=== PATIENT | female | born 1965 | race Caucasian/White ===

== ENCOUNTER 2020-04-20 15:01 | Emergency (ER) | payer MEDICARE, OTHER, SELFPAY ==
--- NOTE | ~2020-04-20 | XR_ITS ---
EXAMINATION: XR wrist RT min 3V EXAM DATE: 04/20/2020 15:39 INDICATION: Initial encounter following fall injury, with pain of the right wrist. Patient has known wrist fractures from 3 months ago. Reinjury. TECHNIQUE: Right wrist frontal, frontal with ulnar deviation, oblique and lateral projections obtain ed and reviewed. There is no prior study for comparison. Correlation was made with right forearm fro m 03/03/2019. FINDINGS: Subacute appearing right radial and ulnar distal metaphyseal fractures into joints with mil d posterior angulation to both. Dense sclerosis, indistinct fracture margin indicating routine healin g. No evidence of superimposed acute refracture, but prior study demonstrating position and alignment of this is not available at this time for direct comparison. Surgical clips overlying the distal asp ect of the radius again noted. IMPRESSION: Subacute appearing right radial and ulnar distal metaphyseal fractures with mild posterio r position. Reviewed, dictated and finalized at location A. IMPRESSION: Subacute appearing right radial and ulnar distal metaphyseal fractu res with mild posterior position.
[2020-04-20 15:18] VITALS: BP 119/70; PULSE 115; RESP 16; TEMP 37.2; O2SAT 99
--- NOTE | 2020-04-20 15:37 | ED.UPPEXIN ---
HPI - Extremity Injury (Upper) General Chief Complaint: Extremity Injury, Upper Stated Complaint: injury right wrist Time Seen by Provider: 04/20/20 15:31 Source: patient and RN notes reviewed Mode of arrival: ambulatory Limitations: no limitations History of Present Illness HPI narrative: Patient presents today with an injury to her right wrist. States she tripped going up some stairs yesterday and fell onto an outstretched hand. 2 to 3 months ago patient had a fracture in the same wrist, and got her cast off approximately 1 month ago. She has been wearing a splint, but did not have it on at the time of this current injury. 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 She has chronic numbness to the third, fourth, and fifth fingers. She currently rates her pain 6/10 and has been taking Aleve with some relief. Pain increases with range of motion and palpation. She previously saw an ortho in [place], but now lives in [place]. Related Data Home Medications Medication Instructions Recorded Confirmed fexofenadine mg 04/20/20 gabapentin 04/20/20 levothyroxine 04/20/20 lorazepam 04/20/20 metronidazole 04/20/20 nortriptyline 04/20/20 omeprazole 04/20/20 sertraline mg 04/20/20 Allergies Allergy/AdvReac Type Severity Reaction Status Date / Time Penicillins Allergy Mild Verified 03/03/19 13:17 Review of Systems Review of Systems: Narrative: CONSTITUTIONAL: Denies body aches, fever, chills, or sweats. EYES: Denies visual changes, redness, or discharge. ENT: Denies rhinorrhea, congestion, sore throat, or otalgia. CARDIOVASCULAR: Denies chest pain, palpitations, or edema. RESPIRATORY: Denies cough or dyspnea. GASTROINTESTINAL: Denies abdominal pain, nausea, vomiting, or diarrhea. GENITOURINARY: Denies dysuria or hematuria. SKIN: Denies rash, itching, or wounds. MUSCULOSKELETAL: Denies back pain, or myalgia.+ Right wrist injury NEUROLOGIC: Denies headache, numbness, tingling, or weakness. PSYCH: Denies depression or anxiety. PMFSH Social History Social History Smoking status: Never smoker Comments At time of signature, I have reviewed and agree with nursing past medical, surgical, social and family history unless otherwise noted. Please see nursing chart for further information. There is no relevant family history pertinent to the presenting complaint Exam Narrative: Exam Narrative: GENERAL: Well-appearing, well-nourished, and in no acute distress. HEAD: Normocephalic, atraumatic. EYES: EOMI. No redness or drainage. Conjunctivae normal. ENT: Mucous membranes pink and moist. NECK: Normal AROM. CHEST: No respiratory distress. EXTREMITIES: Right wrist: Tenderness to the distal radius and ulna with mild edema. Distal sensation is intact in fingers 1 and 2. No sensation in fingers 3 through 5, which is baseline for patient. Pain increases significantly with any palpation and any range of motion of the wrist. SKIN: Warm, dry, no rash. Capillary refill normal. Normal skin turgor. NEURO: No focal deficits. Alert and oriented x3. Gait steady. PSYCH: Normal affect. No signs of depression or anxiety. Course Vital Signs Vital signs: Vital Signs Temperature 99.0 F 04/20/20 15:18 Pulse Rate 115 H 04/20/20 15:18 Respiratory Rate 16 04/20/20 15:18 Blood Pressure 119/70 04/20/20 15:18 Pulse Oximetry 99 04/20/20 15:18 Temperature 99.0 F 04/20/20 15:18 Pulse Rate 115 H 04/20/20 15:18 Respiratory Rate 16 04/20/20 15:18 Blood Pressure 119/70 04/20/20 15:18 Pulse Oximetry 99 04/20/20 15:18 Reviewed MDM - Extremity Injury (Upper) Differential Diagnosis Differential diagnosis: Likely sprain and strain of wrist and fracture of wrist Imaging Data Radiologist's impression: FINDINGS: Subacute appearing right radial and ulnar distal metaphyseal fractures into joints with mild posterior angulation to both. Dense sclerosis, i
== END 2020-04-20 16:15 | disposition home or self-care (01) ==
PROVIDERS: Emergency Provider Nurse Practitioner; PCP Family Medicine Adolescent Medicine
DX: S63.501A Unspecified sprain of right wrist, initial encounter (principal); W10.9XXA Fall (on) (from) unspecified stairs and steps, initial encounter
CPT/HCPCS: 73110; 99213; G0463

== ENCOUNTER 2020-12-07 11:53 | Emergency (ER) | payer MEDICARE, OTHER, SELFPAY ==
--- NOTE | ~2020-12-07 | XR_ITS ---
EXAMINATION: XR foot LT min 3V DATE: 12/07/2020 12:21 INDICATION: Injury to the left metatarsals with lateral left foot pain TECHNIQUE: Dorsoplantar, two oblique and lateral views of the left foot were obtained. COMPARISON: None. FINDINGS: Subtle linear lucency extending across the cortices at the distal diaphysis of the fourth metatarsal with very subtle minimal amount of periosteal reaction consistent with a nondisplaced likely subacute fracture, potentially stress fracture. Callus formation about a likely chronic fracture of the neck of the left fifth proximal phalanx which is healed there is healing with near-anatomic alignment. Ali gnment is otherwise normal. No other fractures identified. Mild polyarticular osteoarthritis at the i nterphalangeal and first metatarsophalangeal joints. Small plantar calcaneal spur. Additional small a mount of enthesopathic ossification at the distal Achilles tendon. Soft tissue swelling over the dors um of the forefoot. IMPRESSION: 1. Nondisplaced likely subacute stress fracture at the distal diaphysis of the left fourth metatarsal with minimal periosteal reaction. 2. Chronic nondisplaced fracture at the neck of the fifth proximal phalanx. Reviewed, dictated and finalized at location A. 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
[2020-12-07 12:10] VITALS: BP 119/78; PULSE 91; RESP 16; TEMP 36.3; O2SAT 100
--- NOTE | 2020-12-07 12:22 | ED.GENADULT ---
HPI - General Adult General Chief complaint: Extremity Injury, Lower Stated complaint: Left foot Pain Time Seen by Provider: 12/07/20 12:20 Source: patient and RN notes reviewed Mode of arrival: ambulatory Limitations: no limitations History of Present Illness HPI narrative: 54-year-old female presents today with complaints of left foot pain, swelling, and discoloration for the past 3 days. Farzana reports she slipped in mud and snow causing injury to LT foot while visiting mother in [place], heard a popping sound prior to pain and swelling. Ice and routine medications (Gabapentin and Amitriptyline) without relief. Hurts to bear weight. No radiation of pain. No numbness, tingling, or loss of mobility. Exacerbating factor applying weight. Denies inability to bear weight. Denies suspect foreign body. Denies fever. The patient reports she have not been diagnosed with COVID-19. The patient reports she is not waiting for the results of a COVID-19 lab test. The patient reports she do not have chills, weakness, or fatigue. The patient reports she do not have a new or worsening cough or shortness of breath. Denies chest pain. The patient reports she do not have any rhinorrhea, congestion, sore throat, loss of taste, nausea, vomiting, abdominal pain, and diarrhea. Tolerating po intake well. Recent traveled to [place], returned on 12/06/2020. Denies concerns for COVID-19 or exposures been home with limited outdoor exposure except for essential household needs and return home. At this time, patient is not suspected of having COVID-19. Some parts of this dictation were generated by voice recognition software and may contain typographical and/or grammatical inaccuracies. Related Data Home Medications Medication Instructions Recorded Confirmed gabapentin 04/20/20 nortriptyline 04/20/20 omeprazole 04/20/20 alprazolam 12/07/20 Allergies Allergy/AdvReac Type Severity Reaction Status Date / Time Penicillins Allergy Mild Verified 03/03/19 13:17 Review of Systems Review of Systems: Narrative: CONSTITUTIONAL: Denies fever, chills, sweats. EYES: Denies visual changes, redness, discharge. ENT: Denies rhinorrhea, congestion, sore throat, otalgia. CARDIOVASCULAR: Denies chest pain, palpitations, edema. RESPIRATORY: Denies dyspnea, wheezing, cough. GASTROINTESTINAL: Denies abdominal pain, nausea, vomiting, diarrhea. SKIN: Denies rash or itching. MUSCULOSKELETAL: Denies acute back pain or myalgia. Complains of pain, discoloration, and swelling to left foot. NEUROLOGIC: Denies numbness or focal weakness. PSYCHIATRIC: Denies anxiety or depression. All other systems reviewed are negative, except as documented in HPI and below. [facility] Past Medical History Medical History (Updated 12/08/20 @ 00:00 by Betzaida Martinez) Arm fracture, right nerve damage Current smoker social, reports every 2-3 weeks History of gastroesophageal reflux (GERD) Wrist fracture, right Surgical History Surgical History (Updated 12/07/20 @ 13:32 by BI Diaz) History of hysterectomy 1992 History of surgery on upper extremity RT arm Family History Family History (Updated 12/07/20 @ 13:33 by BI Diaz) Father Acute myocardial infarction Mother Alive and well Social History Social History (Updated 12/07/20 @ 13:34 by BI Diaz) Smoking status: Current some day smoker Tobacco type: cigarettes Second hand tobacco smoke exposure: Yes Alcohol intake: current Substance use: never Other substance usage details: reports she has a marijuana card but does not use it Living arrangements: with family Additional living arrangements comments: spouse Occupation/Education: retired Gender identity (if verbalized by the patient): Female Sexual Orientation (if Verbalized by the Patient): Straight or Heterosexual Comments At time of signature, agree with nurse bella
[2020-12-07] MEDS: KETOROLAC (*BKC) 60 MG/2 ML VIAL IM (12:42)
== END 2020-12-07 13:02 | disposition home or self-care (01) ==
PROVIDERS: Emergency Provider Nurse Practitioner Family; PCP Family Medicine Adolescent Medicine
DX: S92.902A Unspecified fracture of left foot, initial encounter for closed fracture (principal); W18.40XA Slipping, tripping and stumbling without falling, unspecified, initial encounter; Z72.0 Tobacco use; K21.9 Gastro-esophageal reflux disease without esophagitis
CPT/HCPCS: 73630; 96372; 99214; G0463; J1885

== ENCOUNTER 2021-01-23 11:48 | Emergency (ER) | payer MEDICARE, OTHER, SELFPAY ==
--- NOTE | ~2021-01-23 | XR_ITS ---
EXAMINATION: XR wrist RT min 3V EXAM DATE: 01/23/2021 12:11 INDICATION: Fall, rt wrist pain medial side . Initial encounter. TECHNIQUE: Right wrist frontal, frontal with ulnar deviation, oblique and lateral projections obtain ed and reviewed. Comparison is made to prior examination from 04/20/2020. FINDINGS: Right wrist scapholunate joint space is maintained. Previously seen radius and ulnar fractu res have healed. There are no acute fractures or dislocations identified. There is no subcutaneous g as. The soft tissue is unremarkable. Small surgical clips over the distal aspect of the forearm. IMPRESSION: 1. Right wrist exam without acute osseous findings. 2. Healed fractures. Reviewed, dictated and finalized at location A. IMEDIA AUTHOR
--- NOTE | 2021-01-23 11:58 | ED.UPPEXIN ---
HPI - Extremity Injury (Upper) General Chief Complaint: Extremity Injury, Upper Stated Complaint: Right Wrist Pain Time Seen by Provider: 01/23/21 12:04 Source: patient and RN notes reviewed History of Present Illness HPI narrative: Patient is a 55-year-old female who presents the urgent care with complaints of right wrist pain and swelling due to fall. Patient states that she fell approximately 1 hour prior to arrival going up concrete steps. Patient denies of any other injuries or hitting her head. Patient has a history of severe right arm/elbow fracture with hardware. Patient states the hardware was just recently removed. Patient also fractured her right wrist/radius and ulna last year. 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 Patient denies any use of [id number] medication or ice prior to arrival for the new injury. No other acute complaints. No acute distress noted. Patient aware of the plan of care. Some parts of this dictation were generated by voice recognition software and may contain typographical and/or grammatical inaccuracies. Related Data Home Medications Medication Instructions Recorded Confirmed gabapentin 04/20/20 nortriptyline 04/20/20 alprazolam 12/07/20 diclofenac sodium PO 01/23/21 fexofenadine mg 01/23/21 levothyroxine 01/23/21 Allergies Allergy/AdvReac Type Severity Reaction Status Date / Time Penicillins Allergy Mild Verified 03/03/19 13:17 Review of Systems Review of Systems: Narrative: CONSTITUTIONAL: Denies fever, chills, or sweats. EYES: Denies visual changes, redness, or discharge. ENT: Denies rhinorrhea, congestion, sore throat, or otalgia. CARDIOVASCULAR: Denies chest pain, palpitations, or edema. RESPIRATORY: Denies cough or dyspnea. GASTROINTESTINAL: Denies abdominal pain, nausea, vomiting, or diarrhea. GENITOURINARY: Denies dysuria or hematuria. SKIN: Denies rash or itching. MUSCULOSKELETAL: Reports of right wrist pain and swelling NEUROLOGIC: Denies headache, numbness, or weakness. All other systems reviewed are negative, except as documented in HPI. [facility] Past Medical History Medical History (Updated 01/23/21 @ 12:32 by BI Kiser) Arm fracture, right nerve damage Current smoker social, reports every 2-3 weeks History of gastroesophageal reflux (GERD) Wrist fracture, right Surgical History Surgical History (Updated 12/07/20 @ 13:32 by BI Diaz) History of hysterectomy 1992 History of surgery on upper extremity RT arm Family History Family History (Updated 12/07/20 @ 13:33 by BI Diaz) Father Acute myocardial infarction Mother Alive and well Social History Social History (Updated 12/07/20 @ 13:34 by BI Diaz) Smoking status: Current some day smoker Tobacco type: cigarettes Second hand tobacco smoke exposure: Yes Alcohol intake: current Substance use: never Other substance usage details: reports she has a marijuana card but does not use it Additional living arrangements comments: spouse Gender identity (if verbalized by the patient): Female Comments At the time of my signature, I reviewed and agree with the nursing past medical, surgical, social, and family history. There is no relevant family history pertinent to the patient complaint. Exam Narrative: Exam Narrative: GENERAL: This is a well-nourished, well-developed patient, in no apparent distress. HEAD: normocephalic, atraumatic. EYES: PERRL. Sclera clear/white. Vision is grossly intact. EARS: External ears normal NOSE: External nose normal with no obvious nasal discharge, nares without redness, no rhinorrhea. THROAT: Mucous membranes moist NECK: Neck supple SKIN: warm, intact with no suspicious lesions or rash, good texture and turgor. NEURO: awake, alert, and oriented to person, place and time. There
[2021-01-23 12:03] VITALS: BP 121/86; PULSE 99; RESP 18; TEMP 36.4; O2SAT 99
== END 2021-01-23 12:34 | disposition home or self-care (01) ==
PROVIDERS: Emergency Provider Nurse Practitioner Family; PCP Family Medicine Adolescent Medicine
DX: S63.501A Unspecified sprain of right wrist, initial encounter (principal); S66.911A Strain of unspecified muscle, fascia and tendon at wrist and hand level, right hand, initial encounter; W10.9XXA Fall (on) (from) unspecified stairs and steps, initial encounter; K21.9 Gastro-esophageal reflux disease without esophagitis; Z72.0 Tobacco use
CPT/HCPCS: 73110; 99213; G0463

== ENCOUNTER → 2021-02-04 12:17 | Outpatient (CLI) | payer MEDICARE, OTHER, SELFPAY ==
--- NOTE | ~2021-02-04 | MM_ITS ---
EXAMINATION: MM screening delmis BI w sue HISTORY: Screening TECHNIQUE: Craniocaudal and mediolateral oblique 3-D tomosynthesis images were obtained and synthetic 2-D images were generated. CAD analysis was submitted and interpreted. COMPARISON: Comparison to multiple prior studies sequentially, with oldest reviewed study dated 06/12. BREAST PARENCHYMAL COMPOSITION: There are scattered areas of fibroglandular density. FINDINGS: There is no evidence of suspicious mass, calcification, or architectural distortion to sugg est malignancy in either breast. There has been no suspicious interval change. IMPRESSION: 1. No mammographic evidence of malignancy. 2. Recommend routine screening mammography in one year. BI-RADS Category 1: Negative Reviewed, dictated and finalized at location A.
== END ==
PROVIDERS: PCP Family Medicine Adolescent Medicine; Visit Provider Family Medicine Adolescent Medicine
DX: Z12.31 Encounter for screening mammogram for malignant neoplasm of breast (principal)
CPT/HCPCS: 77063; 77067

== ENCOUNTER 2021-03-22 16:31 | Emergency (ER) | payer MEDICARE, OTHER, SELFPAY ==
--- NOTE | ~2021-03-22 | XR_ITS ---
EXAMINATION: XR wrist RT min 3V DATE: 03/22/2021 16:52 INDICATION: Right wrist pain. Injury. TECHNIQUE: 4 views of right wrist were obtained. COMPARISON: Right wrist radiographs 01/23/2021 FINDINGS: There is an old healed fracture deformity of distal radius. There is 28 degrees dorsal tilt of the distal articular surface. There is an old avulsion fracture of ulnar styloid with nonunion. N o acute fracture. There is mild osteoarthritis of distal radioulnar joint and first carpometacarpal j oint. There are surgical clips in the volar aspect of the forearm. IMPRESSION: 1. Mild polyarticular osteoarthritis. 2. Old healed fracture of distal radius with malunion. Reviewed, dictated and finalized at location A.
[2021-03-22 16:40] VITALS: BP 119/74; PULSE 108; RESP 16; TEMP 36.3; O2SAT 99
--- NOTE | 2021-03-22 16:44 | ED.UPPEXIN ---
HPI - Extremity Injury (Upper) General Chief Complaint: Extremity Injury, Upper Stated Complaint: right hand pain Time Seen by Provider: 03/22/21 17:05 Source: patient and RN notes reviewed Mode of arrival: ambulatory Limitations: no limitations History of Present Illness HPI narrative: 55-year-old female presents with concern for right wrist and hand injury. Reports this afternoon she tripped over her dog falling onto her right hand and wrist. Reports pain at baseline, pain with range of motion. Reports a previous injury to that hand, fracture, nerve damage. Reports she is used ice and elevation. MD complaint: injury to: right and hand Related Data Home Medications Medication Instructions Recorded Confirmed gabapentin 04/20/20 nortriptyline 04/20/20 alprazolam 12/07/20 diclofenac sodium PO 01/23/21 fexofenadine mg 01/23/21 levothyroxine 01/23/21 Allergies Allergy/AdvReac Type Severity Reaction Status Date / Time Penicillins Allergy Mild Verified 03/03/19 13:17 Review of Systems Review of Systems: Narrative: CONSTITUTIONAL: Denies malaise, chills, sweats, or fever. SKIN: Denies lacerations, abrasions MUSCULOSKELETAL: Reports right hand and wrist pain NEUROLOGIC: Denies numbness, weakness All systems reviewed & are unremarkable except as noted in HPI and below PMFSH Past Medical History Medical History (Updated 03/22/21 @ 17:20 by Sarita Aragon NP) Arm fracture, right nerve damage Current smoker social, reports every 2-3 weeks History of gastroesophageal reflux (GERD) Wrist fracture, right Surgical History Surgical History (Updated 12/07/20 @ 13:32 by BI Diaz) History of hysterectomy 1992 History of surgery on upper extremity RT arm Family History Family History (Updated 12/07/20 @ 13:33 by BI Diaz) Father Acute myocardial infarction Mother Alive and well Social History Social History (Updated 12/07/20 @ 13:34 by BI Diaz) Smoking status: Current some day smoker Tobacco type: cigarettes Second hand tobacco smoke exposure: Yes Alcohol intake: current Substance use: never Other substance usage details: reports she has a marijuana card but does not use it Additional living arrangements comments: spouse Gender identity (if verbalized by the patient): Female Comments At time of signature, agree with nursing past medical, surgical, social and family history. There is no relevant family history pertinent to the presenting complaint Exam Narrative: Exam Narrative: GENERAL: Well-appearing, well-nourished, and in no acute distress. HEAD: Normocephalic, atraumatic. EYES: PERRLA, conjunctivae clear NECK: Supple. CHEST: Speaks in full sentences. No respiratory distress. HEART: Regular rate and rhythm. Normal and equal peripheral pulses. EXTREMITIES: Right wrist, hand, digits have limited strength, sensation, range of motion -this is patient's baseline due to previous injury. Mild dorsal edema, edema in digits 4 and 5. No ecchymosis. 3/5 strength with digits 4 and 5 flexion and extension, 5/5 strength with digits 1-3 flexion and extension. Generalized lateral hand and wrist tenderness. No open wounds, no skin tenting, nearby joints and structures intact. Distal pulses palpable and equal bilaterally, skin warm, dry, pink. Capillary refill less than 3 seconds. SKIN: Warm, dry, no rash. NEURO: Alert and oriented x3. PSYCH: Normal mood and affect Course Course Emergency Course: Patient is aware of diagnosis, understands and agrees to treatment plan. Anticipatory guidance given. Patient agrees to follow-up as directed and is aware of reasons to seek care at the emergency department. Portions of this record may have been created with voice recognition software Vital Signs Vital signs: Vital Signs Temperature 97.3 F L 03/22/21 16:40 Pulse Rate 108 H 03/22/21 16:40 Respiratory Rate 16 03/22/21 1
== END 2021-03-22 17:21 | disposition home or self-care (01) ==
PROVIDERS: Emergency Provider Nurse Practitioner; PCP Family Medicine Adolescent Medicine
DX: S63.501A Unspecified sprain of right wrist, initial encounter (principal); S66.911A Strain of unspecified muscle, fascia and tendon at wrist and hand level, right hand, initial encounter; W01.0XXA Fall on same level from slipping, tripping and stumbling without subsequent striking against object, initial encounter; F17.210 Nicotine dependence, cigarettes, uncomplicated; K21.9 Gastro-esophageal reflux disease without esophagitis
CPT/HCPCS: 73110; 99213; G0463

== ENCOUNTER 2021-04-11 11:38 | Outpatient (CLI) | payer MEDICARE, OTHER, SELFPAY ==
--- NOTE | ~2021-04-11 | CT_ITS ---
EXAMINATION: CT abdomen pelvis w con INDICATION: Nausea vomiting and diarrhea TECHNIQUE: Computed tomographic images of the abdomen and pelvis were obtained after the administrati on of 100 cc of Omnipaque 350 intravenous contrast. The dose-length product (DLP) was 775.28 mGy-cm. Automated exposure control and iterative reconstruction technique were employed. COMPARISON: 06/18/2013 FINDINGS: Minimal dependent atelectasis is present in the lung bases. The heart size is normal. The l iver, spleen, pancreas, gallbladder, and adrenal glands are normal. The kidneys are unremarkable. No pathologically enlarged abdominal or pelvic lymph nodes are identified. There is no free intraperiton eal gas or evidence of bowel obstruction. There is widespread submucosal fat deposition in the colon and terminal ileum. The appendix is gas-filled. There is a small umbilical hernia containing fat. The re is mild lumbar spondylosis. IMPRESSION: 1. No CT correlate for the patient's symptoms. 2. Widespread submucosal fat deposition in the colon and terminal ileum which is nonspecific but can be seen in the setting of inflammatory bowel disease. Reviewed, dictated and finalized at location A. IMPRESSION: 1. No CT correlate for the patient's symptoms. 2. Widespread submucosal fat deposition in the colon and terminal ileum which i s nonspecific but can be seen in the setting of inflammatory bowel disease.
[2021-04-11 13:44] LABS: Alanine Aminotransferase 20 U/L (4-35); Albumin Level 4.2 g/dL (3.5-5.1); Alkaline Phosphatase 99 U/L (38-126); Anion Gap 4 mmol/L (8-16); Aspartate Amino Transferase 37 U/L (14-36); Bilirubin,Total 0.3 mg/dL (0.2-1.3); Blood Urea Nitrogen 13 mg/dL (7-17); Calcium 8.8 mg/dL (8.4-10.2); Carbon Dioxide 27 mmol/L (22-30); Chloride 105 mmol/L (98-107); Cholesterol 236 mg/dL (0-200); Estimated Glomerular Filt Rate > 60; Glucose 76 mg/dL (65-105); HDL Direct 48 mg/dL; Potassium 4.4 mmol/L (3.4-5.0); Sodium 136 mmol/L (137-145); Triglycerides 223 mg/dL (<150)
[2021-04-11 13:54] LABS: LDL Cholesterol Direct 132 mg/dL
== END 2021-04-11 11:39 | disposition home or self-care (01) ==
PROVIDERS: PCP Family Medicine Adolescent Medicine; Visit Provider Physician Assistant
DX: E03.9 Hypothyroidism, unspecified (principal); E78.5 Hyperlipidemia, unspecified; F31.9 Bipolar disorder, unspecified; R10.11 Right upper quadrant pain; R10.31 Right lower quadrant pain
CPT/HCPCS: 36415; 74177; 80053; 80061; 84443; Q9967

== ENCOUNTER 2021-04-24 10:08 | Emergency (ER) | payer MEDICARE, OTHER, SELFPAY ==
--- NOTE | ~2021-04-24 | CT_ITS ---
EXAMINATION: CT abdomen pelvis w con EXAM DATE: 04/24/2021 13:55 INDICATION: Generalized abdominal pain, R upper abd pain. TECHNIQUE: Spiral CT of the abdomen and pelvis was performed following intravenous injection of 100 m L Omnipaque 350. Axial, coronal and sagittal images of the abdomen and pelvis were reviewed. The do se-length product (DLP) for this examination was 877.00 mGy-cm. The exposure was tailored according to patient size (auto mA exposure control), and iterative reconstruction (ASIR) was used as additiona l dose reduction technique. Comparison is made to prior examination from 04/11/2021. FINDINGS: There is hepatic steatosis without suspicious focal lesion identified. Spleen, adrenal glan ds, pancreas are unremarkable. Gallbladder is unremarkable. No biliary obstruction. Portal and spl enic veins are patent. Kidneys enhance symmetrically. There is no hydronephrosis. The uterus is n ot identified and has likely been surgically resected. The bladder is unremarkable. There is no ret roperitoneal or pelvic lymphadenopathy. Again there is diffuse fatty deposition of the colonic wall which can be seen with chronic inflammati on, such as inflammatory bowel disease. No evidence of edema or acute colitis. Colon is nearly collap sed. Normal appendix. The stomach and small bowel are unremarkable. No free intraperitoneal gas. The heart is normal in size. There are no pericardial or pleural effusions. Bibasilar subsegment al atelectasis. There are no osteoblastic or osteolytic lesions identified. There is no significant interval change. IMPRESSION: 1. No acute intra-abdominal findings. 2. Colonic submucosal fatty deposition nonspecific but which could indicate chronic inflammation. 3. Hepatic steatosis. Reviewed, dictated and finalized at location A. IMPRESSION: 1. No acute intra-abdominal findings. 2. Colonic submucosal fatty deposition nonspecific but which could indicate ch ronic inflammation. 3. Hepatic steatosis.
[2021-04-24 10:18] VITALS: BP 136/85; PULSE 120; RESP 18; TEMP 36.3; O2SAT 99
--- NOTE | 2021-04-24 10:45 | ED.ABDPAIN ---
HPI - Abdominal Pain General Chief Complaint: Abdominal Pain Stated Complaint: abd pain rt side Time Seen by Provider: 04/24/21 10:13 Source: patient Mode of arrival: ambulatory Limitations: no limitations History of Present Illness HPI narrative: Patient is a 55 year old female who presents complaining of right upper abdominal pain and generalized abdominal pain and diarrhea x 1.5 months. Patient was seen by PCP and had CT completed last week and was referred to GI. Patient reports that she has been unable to make an appointment with GI as of this time. Patient reports having diverticulitis and treated with Flagyl and also treated with prednisone over the past month without relief. Patient reports history of GERD. Patient reports symptoms over the past few days have increased and she feels bloated and cannot get comfortable . She denies nausea or vomiting, denies all other complaints at this time. MD elicited complaint: abdominal pain Related Data Home Medications Medication Instructions Recorded Confirmed gabapentin 04/20/20 nortriptyline 04/20/20 alprazolam 12/07/20 diclofenac sodium PO 01/23/21 fexofenadine mg 01/23/21 levothyroxine 01/23/21 Allergies Allergy/AdvReac Type Severity Reaction Status Date / Time Penicillins Allergy Mild Verified 03/03/19 13:17 Review of Systems Review of Systems: Narrative: CONSTITUTIONAL: Denies fever, chills, or sweats. EYES: Denies visual changes, redness, or discharge. ENT: Denies rhinorrhea, congestion, sore throat, or otalgia. CARDIOVASCULAR: Denies chest pain, palpitations, or edema. RESPIRATORY: Denies cough or dyspnea. GASTROINTESTINAL: Reports abdominal pain and diarrhea. GENITOURINARY: Denies dysuria or hematuria. SKIN: Denies rash or itching. MUSCULOSKELETAL: Denies back pain, joint pain, or myalgia. NEUROLOGIC: Denies headache, numbness, dizziness, or weakness. PSYCHIATRIC: Denies anxiety or depression. [facility] Past Medical History Medical History Arm fracture, right nerve damage Current smoker social, reports every 2-3 weeks History of gastroesophageal reflux (GERD) Wrist fracture, right Surgical History Surgical History History of hysterectomy 1992 History of surgery on upper extremity RT arm Family History Family History Father Acute myocardial infarction Mother Alive and well Social History Social History Smoking status: Current some day smoker Tobacco type: cigarettes Second hand tobacco smoke exposure: Yes Alcohol intake: current Substance use: never Other substance usage details: reports she has a marijuana card but does not use it Additional living arrangements comments: spouse Gender identity (if verbalized by the patient): Female Comments At the time of signature, I have reviewed and agree with nursing past medical, surgical, social, and family history unless otherwise noted. Please see nursing chart for further information. There is no relevant family history pertinent to the presenting complaint. Exam Narrative: Exam Narrative: GENERAL: Well-appearing, well-nourished, and in no acute distress. HEAD: Normocephalic, atraumatic. EYES: EOMI. No redness or drainage. Conjunctiva are normal. ENT: Mucous membranes pink and moist. Nares clear. Throat normal. Uvula midline. NECK: AROM. Supple. No lymphadenopathy. CHEST: No respiratory distress. Clear to auscultation. HEART: Regular rate and rhythm. No murmur appreciated. Normal peripheral pulses. GI: Soft, generalized tenderness with palpation. Mild distention. Bowel sounds hypoactive all quadrants. MUSCULOSKELETAL: No bony tenderness. EXTREMITIES: Normal range of motion. No edema. SKIN: Warm, dry, no rash. NEURO: No focal d
[2021-04-24] MEDS: SODIUM CHLORIDE 0.9% IV 1,000 ML 999 ML IV CONT (10:52)
[2021-04-24] MEDS: PANTOPRAZOLE SODIUM IV 40 MG VIAL IV PUSH (10:53)
[2021-04-24] MEDS: DICYCLOMINE HCL INJ 20 MG/2 ML VIAL IM (10:54)
[2021-04-24 11:30] VITALS: BP 132/81; PULSE 96; RESP 18; O2SAT 99
[2021-04-24 11:33] LABS: Basophils Absolute Auto 0.1 K/mm3 (0.0-0.1); Basophils Percent Auto 0.4 % (0.2-1.2); Eosinophils Absolute Auto 0.2 K/mm3 (0-0.3); Eosinophils Percent Auto 1.4 % (0-4.4); Hematocrit 44.6 % (37.0-47.0); Hemoglobin 14.5 g/dL (12.0-15.0); Immature Granulocyte Absolute 0.12 K/mm3 (0.00-0.031); Lymphocytes Absolute Auto 3.82 K/mm3 (0.9-3.2); Lymphocytes Percent Auto 30.5 % (18.3-44.2); Mean Corpuscular HGB Conc 32.5 g/dl (32-36); Mean Corpuscular Volume 101.4 fl (80-100); Mean Platelet Volume 10.1 fl (7.4-10.4); Monocytes Absolute Auto 0.9 K/mm3 (0.1-0.6); Monocytes Percent Auto 7.4 % (2.6-8.5); Neutrophils Absolute Auto 7.5 K/mm3 (1.3-6.7); Neutrophils Percent Auto 59.3 % (45.5-73.1); Platelet Count Result 273 k/mm3 (150-375); Red Cell Distribution Width 16.2 % (11.5-14.5); White Blood Count 12.5 K/mm3 (4.5-10.0)
[2021-04-24 11:40] LABS: Add Urine Microscopic? YES; Appearance Urine Clear (Clear); Bacteria Urine Trace /hpf; Bilirubin Urine Negative (Negative); Blood Urine 1+ (Negative); Color Urine Yellow (Yellow); Glucose Urine UA Negative (Negative); Ketones Urine Negative (Negative); Leukocyte Esterase Ur Negative LEU/UL (Negative); Nitrate Urine Negative (Negative); Protein Urine Negative (Negative); RBC Urine 0-2 /hpf (0-2); Specific Grav Ur 1.005 (1.001-1.035); Squamous Epithelial Cell Urine Many /hpf (Few); Urobilinogen Urine Negative mg/dL (<2.0)
[2021-04-24 11:44] LABS: Alanine Aminotransferase 22 U/L (4-35); Albumin Level 4.8 g/dL (3.5-5.1); Alkaline Phosphatase 122 U/L (38-126); Anion Gap 12 mmol/L (8-16); Aspartate Amino Transferase 37 U/L (14-36); Bilirubin Indirect 0.4 mg/dL (0-1.1); Bilirubin,Total 0.8 mg/dL (0.2-1.3); Blood Urea Nitrogen 17 mg/dL (7-17); Calcium 9.3 mg/dL (8.4-10.2); Carbon Dioxide 24 mmol/L (22-30); Chloride 102 mmol/L (98-107); Estimated CRCL calculation 66 ml/min; Estimated Glomerular Filt Rate 57; Glucose 77 mg/dL (65-105); Lipase 41 U/L (23-300); Potassium 4.4 mmol/L (3.4-5.0); Sodium 138 mmol/L (137-145)
[2021-04-24 13:51] VITALS: BP 130/79; PULSE 90; RESP 18; O2SAT 100
== END 2021-04-24 15:33 | disposition home or self-care (01) ==
PROVIDERS: Emergency Provider Nurse Practitioner; PCP Family Medicine Adolescent Medicine
DX: K52.9 Noninfective gastroenteritis and colitis, unspecified (principal); F17.210 Nicotine dependence, cigarettes, uncomplicated; K76.0 Fatty (change of) liver, not elsewhere classified
CPT/HCPCS: 36415; 74177; 80053; 81001; 82248; 83690; 85025; 96361; 96372; 96374; 99284; C9113; J0500; J7030; Q9967

== ENCOUNTER → 2021-05-09 00:34 | Outpatient (CLI) | payer MEDICARE, OTHER, SELFPAY | PROVIDERS: PCP Family Medicine Adolescent Medicine; Visit Provider Internal Medicine Gastroenterology | DX: Z01.812 Encounter for preprocedural laboratory examination (principal); Z20.822 Contact with and (suspected) exposure to COVID-19 | CPT/HCPCS: C9803; U0003; U0005 ==

== ENCOUNTER 2021-05-12 01:22 | Day surgery (SDC) | payer MEDICARE, OTHER, SELFPAY ==
[2021-05-05 11:07] VITALS: BMI 31.7
[2021-05-12 08:18] VITALS: BP 125/82; PULSE 121; RESP 18; TEMP 36.1; O2SAT 99; BMI 30.7
[2021-05-12] MEDS: LACTATED RINGERS 1,000 ML 150 ML IV CONT ×2 (08:29→09:22)
--- NOTE | 2021-05-12 09:02 | WPDANESEPPF ---
Anes - Initial Pre Proc Eval Procedure: Operation Date: 05/12/21 09:30 Proposed Procedures p Colonoscopy - Delonte Hernandez MD Date/Time: 05/12/21 09:02 Surgeon: Delonte Hernandez MD Pre Op Diagnosis: Diarrhea and abnormal cat scan Patient Data Age: 55 Gender: F Height: 1.7 m Weight: 88.8 kg Last Vital Signs Temp 36.1 C L 05/12/21 08:18 Pulse 121 H 05/12/21 08:18 Resp 18 05/12/21 08:18 BP 125/82 05/12/21 08:18 Pulse Ox 99 05/12/21 08:18 Allergies Allergy/AdvReac Type Severity Reaction Status Date / Time Penicillins Allergy Mild Hives Verified 05/12/21 08:15 Home Medications Medication Instructions Recorded Confirmed Type gabapentin 900 mg PO TID 04/20/20 05/12/21 History nortriptyline 75 mg PO HS 04/20/20 05/12/21 History alprazolam 0.5 mg PO BID PRN 12/07/20 05/12/21 History diclofenac sodium 75 mg PO DAILY 01/23/21 05/12/21 History omeprazole 20 mg tablet,delayed 20 mg PO DAILY 04/27/21 05/12/21 History release calcium 750 mg PO BID 05/05/21 05/12/21 History levothyroxine 125 mcg PO DAILY 05/05/21 05/12/21 History Patient hx anesthesia problems: none Family hx anesthesia problems: none PMFSH Past Medical History Medical History Arm fracture, right nerve damage Arthritis BMI 32.0-32.9,adult Congestive heart failure Current smoker social, reports every 2-3 weeks Diarrhea Hepatic steatosis History of gastroesophageal reflux (GERD) Osteoporosis Right upper quadrant pain Thyroid disease Wrist fracture, right Surgical History Surgical History History of hysterectomy 1991 History of surgery on upper extremity RT arm Family History Family History Father Acute myocardial infarction Mother Depression Cerebrovascular accident Sibling Thyroid disorder Son Depression Cancer Social History Social History Years smoked: 4 Smoking status: Light tobacco smoker Tobacco type: cigarettes Second hand tobacco smoke exposure: Yes Additional smoking assessment comments: 1/2 pack a day Alcohol intake: former Substance use: current Substance use type: marijuana Other substance usage details: MEDICAL PRESCRIPTION FOR GUMMIES AND SMOKE Living arrangements: with family Additional living arrangements comments: spouse Gender identity (if verbalized by the patient): Female Spiritual care concerns: No Anes - Eval Final PreProcedure Day of Procedure 05/12/21 09:02 Patient weight: obese Heart: regular rate and rhythm Lungs: clear to auscultation Airway: Mallampati scale class II Neurological: alert and oriented Last oral intake: >/= 8 hours ASA classification: III Emergent: no Anesthetic plan: proceed Anesthesia type and monitoring: general GIVS and standard monitoring Informed Consent: The patient's anesthetic plan and its attendant risks and benefits were discussed with the patient/family/POA. Questions were solicited and answers provided to the satisfaction of the patient/family/POA.
--- NOTE | 2021-05-12 09:12 | PM.HPGS ---
History of Present Illness History of Present Illness Consent: Risks, benefits, and alternatives have been discussed and questions answered. Patient agrees to proceed with procedure. Chief complaint: Diarrhea and abnormal cat scan Narrative: Farzana Perez is a 55 year old female Was being investigated for chronic diarrhea. This began about 3 or 4 months ago. She has loose watery stools every day, sometimes up to 10 times a day. She does not see blood her stools. Her symptoms are worse when she eats, with the sensation that food is going right through . She also has had a pain in the right lower quadrant. A CT scan was unremarkable. She has not lost weight in fact has been gaining weight, 20 lb in the past few months. Review of Systems Review of Systems: All systems reviewed & are unremarkable except as noted in HPI and below PMFSH Past Medical History Medical History Arm fracture, right nerve damage Arthritis BMI 32.0-32.9,adult Congestive heart failure Current smoker social, reports every 2-3 weeks Diarrhea Hepatic steatosis History of gastroesophageal reflux (GERD) Osteoporosis Right upper quadrant pain Thyroid disease Wrist fracture, right Surgical History Surgical History History of hysterectomy 1992 History of surgery on upper extremity RT arm Family History Family History Father Acute myocardial infarction Mother Depression Cerebrovascular accident Sibling Thyroid disorder Son Depression Cancer Social History Social History Years smoked: 4 Smoking status: Light tobacco smoker Tobacco type: cigarettes Second hand tobacco smoke exposure: Yes Additional smoking assessment comments: 1/2 pack a day Alcohol intake: former Substance use: current Substance use type: marijuana Other substance usage details: MEDICAL PRESCRIPTION FOR GUMMIES AND SMOKE Living arrangements: with family Additional living arrangements comments: spouse Gender identity (if verbalized by the patient): Female Spiritual care concerns: No Meds Home Medications and Allergies Home Medications Medication Instructions Recorded Confirmed Type gabapentin 900 mg PO TID 04/20/20 05/12/21 History nortriptyline 75 mg PO HS 04/20/20 05/12/21 History alprazolam 0.5 mg PO BID PRN 12/07/20 05/12/21 History diclofenac sodium 75 mg PO DAILY 01/23/21 05/12/21 History omeprazole 20 mg tablet,delayed 20 mg PO DAILY 04/27/21 05/12/21 History release calcium 750 mg PO BID 05/05/21 05/12/21 History levothyroxine 125 mcg PO DAILY 05/05/21 05/12/21 History Allergies Allergy/AdvReac Type Severity Reaction Status Date / Time Penicillins Allergy Mild Hives Verified 05/12/21 08:15 Vital Signs Vital Signs - 24 hr 05/12/21 08:18 Temperature 36.1 C L Pulse Rate 121 H Respiratory Rate 18 Blood Pressure 125/82 Pulse Oximetry 99 Exam Const: Nutritional Appearance: overweight Resp: Auscultation: clear to auscultation bilaterally Cardio: Rate: regular rate Rhythm: regular rhythm GI: GI Palp: Yes Soft to palpation and No Tenderness to palpation present (GI) Assessment and Plan Assessment and plan (1) Chronic diarrhea: Code(s): K52.9 - Noninfective gastroenteritis and colitis, unspecified Status: Acute Assessment and Plan: Colonoscopy with possible biopsy or polypectomy or cautery or injection of substances.
[2021-05-12 10:10] VITALS: BP 101/60; PULSE 102; RESP 30; O2SAT 99
[2021-05-12 10:20] VITALS: BP 100/63; PULSE 85; RESP 24; O2SAT 99
[2021-05-12 10:30] VITALS: BP 106/56; PULSE 83; RESP 18; O2SAT 99
== END 2021-05-12 10:45 | disposition home or self-care (01) ==
PROVIDERS: PCP Family Medicine Adolescent Medicine; Visit Provider Internal Medicine Gastroenterology
PROC: 0DJD8ZZ Inspection of Lower Intestinal Tract, Via Natural or Artificial Opening Endoscopic (ICD-10-PCS; CPT 45378; principal; 2021-05-12 09:30)
DX: K59.1 Functional diarrhea (principal); K64.8 Other hemorrhoids; K63.5 Polyp of colon; R93.3 Abnormal findings on diagnostic imaging of other parts of digestive tract; M19.90 Unspecified osteoarthritis, unspecified site; M81.0 Age-related osteoporosis without current pathological fracture; K76.0 Fatty (change of) liver, not elsewhere classified; E07.9 Disorder of thyroid, unspecified; F12.90 Cannabis use, unspecified, uncomplicated; E03.9 Hypothyroidism, unspecified; F17.210 Nicotine dependence, cigarettes, uncomplicated; I50.9 Heart failure, unspecified; E66.9 Obesity, unspecified; Z68.30 Body mass index [BMI] 30.0-30.9, adult
CPT/HCPCS: 45385; 45380; 88305; J7120

== ENCOUNTER 2021-06-19 13:41 | Emergency (ER) | payer MEDICARE, OTHER, SELFPAY ==
--- NOTE | ~2021-06-19 | XR_ITS ---
EXAMINATION: XR foot LT min 3V DATE: 06/19/2021 14:13 INDICATION: Left foot pain TECHNIQUE: Dorsoplantar, lateral, and 2 oblique views of the left foot were obtained. COMPARISON: 12/07/2020 FINDINGS: There is a healed fracture of the fourth metatarsal. Mild varus and dorsal angulation is pr esent at the fracture site. A healed fracture of the fifth proximal phalanx is also noted. No acute f racture is identified. There is soft tissue swelling of the fourth and fifth toes. Posterior and plan tar calcaneal enthesophytes are noted. IMPRESSION: 1. Soft tissue swelling without acute osseous abnormality identified. Reviewed, dictated and finalized at location A.
[2021-06-19 13:57] VITALS: BP 122/84; PULSE 107; RESP 18; TEMP 36.8; O2SAT 97
--- NOTE | 2021-06-19 14:34 | ED.GENADULT ---
HPI - General Adult General Chief complaint: Extremity Injury, Lower Stated complaint: left foot/4th digit toe pain Source: patient Mode of arrival: ambulatory Limitations: no limitations History of Present Illness HPI narrative: 55 y/o female. PMHx GERD, Hypothyroid, PN. Presents to [facility] today with acute complaints of LT 4th toe pain and swelling S/P injury. 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 She notes worsening swelling and pain to area since this time. No loss of lower extremity sensation or control. No additional injury has been identified. Gait steady. Related Data Home Medications Medication Instructions Recorded Confirmed gabapentin 900 mg PO TID 04/20/20 05/12/21 nortriptyline 75 mg PO HS 04/20/20 05/12/21 omeprazole 20 mg tablet,delayed 20 mg PO DAILY 04/27/21 05/12/21 release levothyroxine 125 mcg PO DAILY 05/05/21 05/12/21 Allergies Allergy/AdvReac Type Severity Reaction Status Date / Time Penicillins Allergy Mild Hives Verified 06/19/21 14:02 Review of Systems Review of Systems: CONSTITUTIONAL: Denies fever, chills, sweats. EYES: Denies visual changes, redness, discharge. ENT: Denies rhinorrhea, congestion, sore throat, otalgia. CARDIOVASCULAR: Denies chest pain, palpitations, edema. RESPIRATORY: Denies dyspnea, wheezing, cough GASTROINTESTINAL: Denies abdominal pain, nausea, vomiting, diarrhea. GENITOURINARY: Denies dysuria, hematuria, abnormal discharge SKIN: Denies rash or itching. MUSCULOSKELETAL: Positive joint pain, LT 4th toe. No myalgia. NEUROLOGIC: Denies numbness, or focal weakness. PSYCHIATRIC: Denies anxiety or depression. All systems reviewed & are unremarkable except as noted in HPI and below PMFSH Past Medical History Medical History Arm fracture, right nerve damage Arthritis BMI 32.0-32.9,adult Congestive heart failure Current smoker social, reports every 2-3 weeks Diarrhea Hepatic steatosis History of gastroesophageal reflux (GERD) Osteoporosis Right upper quadrant pain Thyroid disease Wrist fracture, right Surgical History Surgical History History of hysterectomy 1991 History of surgery on upper extremity RT arm Family History Family History Father Acute myocardial infarction Mother Depression Cerebrovascular accident Sibling Thyroid disorder Son Depression Cancer Social History Social History Years smoked: 4 Smoking status: Light tobacco smoker Tobacco type: cigarettes Second hand tobacco smoke exposure: Yes Additional smoking assessment comments: 1/2 pack a day Alcohol intake: former Alcohol use details: beer and Fireball Substance use: current Substance use type: marijuana Other substance usage details: MEDICAL PRESCRIPTION FOR GUMMIES AND SMOKE Additional living arrangements comments: spouse Gender identity (if verbalized by the patient): Female Spiritual care concerns: No Exam Narrative: GENERAL: This is a well-nourished, well-developed adult, in no apparent distress. HEAD: normocephalic, atraumatic. EYES: PERRL. Sclera clear/white. EARS: External ears normal, auditory canals clear and without drainage, TMs normal. NOSE: External nose normal. Positive Rhinorrhea, no obstruction, nares patent. THROAT: Mucous membranes moist, posterior pharynx clear. No exudates. NECK: Neck supple, non-tender without lymphadenopathy, masses or thyromegaly. CARDIOVASCULAR: Regular rate and rhythm without murmurs, gallops, or rubs. Strong pulses LLE. RESPIRATORY: Clear to auscultation. Breath sounds equal bilaterally. No wheezes, rales, or rhonchi. GASTROINTESTINAL: Abdomen soft, non-tender, nondisten
== END 2021-06-19 14:58 | disposition home or self-care (01) ==
PROVIDERS: Emergency Provider Nurse Practitioner Adult Health; PCP Family Medicine Adolescent Medicine
DX: S93.505A Unspecified sprain of left lesser toe(s), initial encounter (principal); W22.09XA Striking against other stationary object, initial encounter; M19.90 Unspecified osteoarthritis, unspecified site; I50.9 Heart failure, unspecified; K76.0 Fatty (change of) liver, not elsewhere classified; K21.9 Gastro-esophageal reflux disease without esophagitis; M81.0 Age-related osteoporosis without current pathological fracture; Z72.0 Tobacco use
CPT/HCPCS: 73630; 99213; G0463

== ENCOUNTER 2021-09-02 09:53 | Emergency (ER) | payer MEDICARE, OTHER, SELFPAY ==
--- NOTE | ~2021-09-02 | XR_ITS ---
EXAMINATION: XR foot RT min 3V DATE: 09/02/2021 11:18 INDICATION: Right foot pain and swelling TECHNIQUE: Dorsoplantar, two oblique and lateral views of the right foot were obtained. COMPARISON: 03/09/2018 FINDINGS: Chronic osteonecrosis with prominent collapse and flattening of the now irregular articular surfaces at the heads of the second and third metatarsals. Alignment is normal. No acute fracture. Mild polyar ticular osteoarthritis at the first metatarsophalangeal and multiple tarsometatarsal and interphalang eal joints. Small Achilles and plantar calcaneal spurs. Additional prominent enthesophyte at the dors al rim of the proximal navicula. Soft tissues are unremarkable. No ankle joint effusion. IMPRESSION: 1. Chronic osteonecrosis with collapse and irregularity of the articular surfaces at the heads of the second and third metatarsals. 2. Mild polyarticular osteoarthritis in the fore and midfoot. Reviewed, dictated and finalized at location A. IMPRESSION: 1. Chronic osteonecrosis with collapse and irregularity of the articular surfac es at the heads of the second and third metatarsals. 2. Mild polyarticular osteoarthritis in the fore and midfoot.
--- NOTE | ~2021-09-02 | XR_ITS ---
XR foot LT min 3V DATE: 09/02/2021 11:18 INDICATION: Diffuse foot pain following a fall 3 days ago TECHNIQUE: 4 views COMPARISON: 06/19/2021 left foot FINDINGS: Old healed fracture deformities of the distal shaft of the fourth metatarsal bone and the p roximal phalanx of the fifth toe are again noted. Diffuse osteopenia. There is mild osteoarthritis at the first metatarsophalangeal joint. Mild plantar and moderate posterior calcaneal enthesopathy. IMPRESSION: No recent fracture or dislocation Reviewed, dictated and finalized at location A.
[2021-09-02 10:15] VITALS: BP 93/61; PULSE 102; RESP 16; TEMP 37; O2SAT 99
--- NOTE | 2021-09-02 11:03 | ED.LOWEXIN ---
HPI - Extremity Injury (Lower) General Chief Complaint: Extremity Injury, Lower Stated Complaint: stacy foot pain Time Seen by Provider: 09/02/21 11:03 Source: patient Mode of arrival: ambulatory Limitations: no limitations History of Present Illness HPI Narrative: Farzana Perez is a 55 yo female with no PMH [facility] dorsum foot swelling and pain after a fall yesterday on her sidewalk. She was wearing sandals and tripped, cause pain on bilateral top of feet, no abrasion noted Related Data Home Medications Medication Instructions Recorded Confirmed gabapentin 900 mg PO TID 04/20/20 09/02/21 nortriptyline 75 mg PO HS 04/20/20 09/02/21 omeprazole 20 mg tablet,delayed 20 mg PO DAILY 04/27/21 09/02/21 release levothyroxine 125 mcg PO DAILY 05/05/21 09/02/21 Allergies Allergy/AdvReac Type Severity Reaction Status Date / Time Penicillins Allergy Mild Hives Verified 09/02/21 10:20 Review of Systems Review of Systems: CONSTITUTIONAL: Denies fever, chills, sweats. EYES: Denies visual changes, redness, discharge. ENT: Denies rhinorrhea, congestion, sore throat, otalgia. CARDIOVASCULAR: Denies chest pain, palpitations, edema. RESPIRATORY: Denies dyspnea, wheezing, cough GASTROINTESTINAL: Denies abdominal pain, nausea, vomiting, diarrhea. GENITOURINARY: Denies dysuria, hematuria, abnormal discharge SKIN: Denies rash or itching. NEUROLOGIC: Denies numbness, or focal weakness. PSYCHIATRIC: Denies anxiety or depression. Bilateral dorsum foot pain from fall [facility] Past Medical History Medical History Arm fracture, right nerve damage Arthritis BMI 32.0-32.9,adult Congestive heart failure Current smoker social, reports every 2-3 weeks Diarrhea Hepatic steatosis History of gastroesophageal reflux (GERD) Osteoporosis Right upper quadrant pain Thyroid disease Wrist fracture, right Surgical History Surgical History History of hysterectomy 1991 History of surgery on upper extremity RT arm Family History Family History Father Acute myocardial infarction Mother Depression Cerebrovascular accident Sibling Thyroid disorder Son Depression Cancer Social History Social History Years smoked: 4 Smoking status: Light tobacco smoker Tobacco type: cigarettes Second hand tobacco smoke exposure: Yes Additional smoking assessment comments: 1/2 pack a day Alcohol intake: former Alcohol use details: beer and Fireball Substance use: current Substance use type: marijuana Other substance usage details: MEDICAL PRESCRIPTION FOR GUMMIES AND SMOKE Additional living arrangements comments: spouse Gender identity (if verbalized by the patient): Female Sexual Orientation (if Verbalized by the Patient): Straight or Heterosexual Spiritual care concerns: No Comments At time of signature, I agree with nursing past medical, surgical, social and family history. There is no relevant family history pertinent to the presenting complaint. Exam Narrative: GENERAL: This is a well-nourished, well-developed patient, in mild distress. HEAD: normocephalic, atraumatic. EYES: PERRL. Sclera clear/white. Vision is grossly intact. EARS: External ears normal, auditory canals clear and without drainage, TMs normal without perforation. Hearing grossly intact. NOSE: External nose normal without nasal discharge, nares without redness, no rhinorrhea. THROAT: Mucous membranes moist, posterior pharynx NECK: Neck supple, non-tender CARDIOVASCULAR: Regular rate and rhythm without murmurs, gallops, or rubs. RESPIRATORY: Clear to auscultation. Breath sounds equal bilaterally. No wheezes, rales, or rhonchi. GASTROINTESTINAL: Abdomen soft, non-tender, SKIN: warm, int
== END 2021-09-02 11:55 | disposition home or self-care (01) ==
PROVIDERS: Emergency Provider Nurse Practitioner; PCP Family Medicine Adolescent Medicine
DX: S93.602A Unspecified sprain of left foot, initial encounter (principal); S93.601A Unspecified sprain of right foot, initial encounter; W19.XXXA Unspecified fall, initial encounter; F17.210 Nicotine dependence, cigarettes, uncomplicated; M19.90 Unspecified osteoarthritis, unspecified site; I50.9 Heart failure, unspecified; K21.9 Gastro-esophageal reflux disease without esophagitis; M81.0 Age-related osteoporosis without current pathological fracture; E07.9 Disorder of thyroid, unspecified
CPT/HCPCS: 73630; 99214; G0463

== ENCOUNTER 2021-10-17 14:20 | Outpatient (CLI) | payer MEDICARE, OTHER, SELFPAY ==
--- NOTE | ~2021-10-17 | XR_ITS ---
EXAMINATION: XR hand RT min 3V EXAM DATE: 10/17/2021 14:36 INDICATION: Right hand injury, pain. TECHNIQUE: Right hand frontal, lateral and oblique projections obtained and reviewed. Comparison is m elisha to prior examination from 03/22/2021. FINDINGS: Right metacarpal bones are unremarkable. There are old distal radial and ulnar metaphyseal fractures that have healed. There is old ulnar styloid avulsion fracture. Surgical clips along the di stal aspect of the forearm. There is mild to moderate polyarticular primary osteoarthritis. IMPRESSION: No acute right hand findings. Reviewed, dictated and finalized at location A. 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
== END 2021-10-17 14:21 | disposition home or self-care (01) ==
PROVIDERS: PCP Family Medicine Adolescent Medicine; Visit Provider Family Medicine Adolescent Medicine
DX: S69.91XA Unspecified injury of right wrist, hand and finger(s), initial encounter (principal)
CPT/HCPCS: 73130

== ENCOUNTER 2021-12-27 16:45 | Outpatient (CLI) | payer MEDICARE, SELFPAY ==
--- NOTE | ~2021-12-27 | CT_ITS ---
EXAMINATION: CTA chest PE protocol DATE: 12/27/2021 17:38 INDICATION: Shortness of breath. TECHNIQUE: Computed tomography angiography (CTA) of the chest was performed with 100 mL Omnipaque-350 intravenous contrast timed to evaluate the pulmonary arteries. Coronal maximum intensity projection 3D-reconstructions were created by the technologist. Automated exposure control and iterative reconst ruction technique were employed. The dose-length product was 267.52 mGy-cm. COMPARISON: Chest CT 05/07/2015 FINDINGS: There is mild atelectasis bilaterally. No pleural effusion. The heart size is normal. No pe ricardial effusion. There is a pulmonary embolus in the basilar segments of left lower lobe. There is a pulmonary embolus in right lower lobe. There is diffuse hepatic steatosis. There is mild thoracic spondylosis. There is developmental anterior and posterior fusion at T2-T3. IMPRESSION: 1. Acute pulmonary emboli in the lower lobes. Reviewed, dictated and finalized at location A. 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
--- NOTE | ~2021-12-27 | US_ITS ---
EXAMINATION: US venous doppler LE RT DATE: 12/27/2021 17:50 INDICATION: Lower limb pain and swelling. Other specified soft tissue disorders. TECHNIQUE: Grayscale ultrasound images without and with compression and Doppler ultrasound images of the right lower extremity veins were obtained. COMPARISON: None. FINDINGS: The visualized portions of right common femoral vein, profunda (deep) femoral vein, femoral vein, per sotomayor veins, and greater saphenous vein outflow are patent. There is thrombus in right popliteal and posterior tibial veins. IMPRESSION: 1. Deep vein thrombosis involving right popliteal and posterior tibial veins. Reviewed, dictated and finalized at location A. T LOADER
== END 2021-12-27 16:46 | disposition home or self-care (01) ==
PROVIDERS: PCP Family Medicine Adolescent Medicine; Referring Provider Podiatrist Foot & Ankle Surgery; Visit Provider Physician Assistant
DX: R06.02 Shortness of breath (principal); M79.89 Other specified soft tissue disorders; I82.431 Acute embolism and thrombosis of right popliteal vein; I82.441 Acute embolism and thrombosis of right tibial vein; I26.99 Other pulmonary embolism without acute cor pulmonale
CPT/HCPCS: 71275; 93971; Q9967

== ENCOUNTER 2021-12-28 16:30 | Emergency (ER) | payer MEDICARE, SELFPAY ==
[2021-12-28] VITALS (16 sets, daily range): BP systolic 108–126; BP diastolic 68–90; PULSE 96–118; RESP 17–28; TEMP 36.6; O2SAT 96–100
--- NOTE | 2021-12-28 16:41 | ECG_ITS ---
Measurements Intervals [place] Rate: 105 P: 57 [place]: 152 QRS: 9 QRSD: 88 T: 36 QT: 319 QTc: 423 Interpretive Statements SINUS TACHYCARDIA POSSIBLE LEFT ATRIAL ENLARGEMENT BORDERLINE T WAVE ABNORMALITY- ANT/INF LEADS BASELINE ARTIFACT- I, II, III, AVR, AVL, AVF BORDERLINE ECG Electronically Signed On 12-28-2021 19:57:58 [employer] by Ovidio Dalton D.O.
[2021-12-28 17:09] LABS: Basophils Percent Auto 0.3 % (0.2-1.2); Eosinophils Absolute Auto 0.2 K/mm3 (0-0.3); Eosinophils Percent Auto 2.4 % (0-4.4); Hematocrit 37.7 % (37.0-47.0); Hemoglobin 12.8 g/dL (12.0-15.0); Immature Granulocyte Absolute 0.04 K/mm3 (0.00-0.031); Immature Granulocyte Percent A 0.5 % (0-0.5); Lymphocytes Absolute Auto 2.69 K/mm3 (0.9-3.2); Lymphocytes Percent Auto 30.7 % (18.3-44.2); Mean Corpuscular Hemoglobin 35.7 pg (26-34); Mean Platelet Volume 8.7 fl (7.4-10.4); Monocytes Absolute Auto 0.6 K/mm3 (0.1-0.6); Monocytes Percent Auto 6.4 % (2.6-8.5); Neutrophils Absolute Auto 5.2 K/mm3 (1.3-6.7); Neutrophils Percent Auto 59.7 % (45.5-73.1); Platelet Count Result 283 k/mm3 (150-375); Red Blood Count 3.59 M/mm3 (4.2-5.4); Red Cell Distribution Width 18.5 % (11.5-14.5); White Blood Count 8.8 K/mm3 (4.5-10.0)
[2021-12-28 17:23] LABS: INR 1.9; Prothrombin Time 21.7 Seconds (11.1-14.7)
[2021-12-28 17:24] LABS: Partial Thromboplastin Time 37.1 SECONDS (22.3-36.8)
[2021-12-28 17:28] LABS: Alanine Aminotransferase 33 U/L (4-35); Albumin Level 4.2 g/dL (3.5-5.1); Alkaline Phosphatase 136 U/L (38-126); Anion Gap 7 mmol/L (8-16); Aspartate Amino Transferase 46 U/L (14-36); Bilirubin,Total 0.4 mg/dL (0.2-1.3); Blood Urea Nitrogen 6 mg/dL (7-17); Calcium 8.5 mg/dL (8.4-10.2); Carbon Dioxide 21 mmol/L (22-30); Chloride 107 mmol/L (98-107); Estimated CRCL calculation 88 ml/min; Estimated Glomerular Filt Rate > 60; Glucose 104 mg/dL (65-110); Lipase 41 U/L (23-300); Potassium 3.7 mmol/L (3.4-5.0); Sodium 135 mmol/L (137-145)
[2021-12-28 17:38] LABS: Troponin I < 0.012 ng/mL (0.000-0.034)
--- NOTE | 2021-12-28 19:01 | PC.NURSE ---
added on BNP to lab
[2021-12-28 19:40] LABS: NT Pro B Type Natriuretic Pept 34 pg/mL (5-100)
--- NOTE | 2021-12-28 19:46 | ED.GENADULT ---
HPI - General Adult General Chief complaint: Shortness of Breath/Dyspnea Stated complaint: shortness of breath and blood clots Time Seen by Provider: 12/28/21 17:05 Source: patient and family Mode of arrival: ambulatory Limitations: no limitations History of Present Illness HPI narrative: 56-year-old with a history of hypothyroidism diagnosed with PE and DVT yesterday here with complaints of right leg swelling and mild shortness of breath with ambulation. She denied any chest pain . She states she started on Xarelto yesterday had 2 doses so far. She is worried about her right leg being swollen. Onset (ago): day(s) (1) Severity: moderate Pain Consistency: constant Relieving factors: none Exacerbating factors: none Associated symptoms: shortness of breath Related Data Home Medications Medication Instructions Recorded Confirmed gabapentin 900 mg PO TID 04/20/20 12/27/21 nortriptyline 75 mg PO HS 04/20/20 12/27/21 omeprazole 20 mg tablet,delayed 20 mg PO DAILY 04/27/21 12/27/21 release levothyroxine 125 mcg PO DAILY 05/05/21 12/27/21 rivaroxaban [Xarelto] 30 mg PO DAILY 12/28/21 Allergies Allergy/AdvReac Type Severity Reaction Status Date / Time Penicillins Allergy Mild Hives Verified 12/27/21 15:11 Review of Systems Review of Systems: All systems reviewed & are unremarkable except as noted in HPI and below Constitutional: Constitutional: Reports no additional constitutional complaints Eyes: Eyes: Reports no additional eye complaints ENT: Reports system reviewed and no additional complaints, except as documented Cardiovascular: Cardiovascular: Reports no additional cardiovascular complaints Respiratory: Respiratory: Reports as per HPI Gastrointestinal: Gastrointestinal: Reports no additional gastrointestinal complaints Musculoskeletal: Musculoskeletal: Reports as per HPI Neurologic: Reports system reviewed and no additional complaints, except as documented PMF Past Medical History Medical History Arm fracture, right nerve damage Arthritis Bipolar disorder BMI 32.0-32.9,adult Current smoker social, reports every 2-3 weeks Diarrhea GERD (gastroesophageal reflux disease) Hepatic steatosis History of cervical cancer History of gastroesophageal reflux (GERD) Hypothyroid 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, unspecified arm, 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 Osteoporosis PTSD (post-traumatic stress disorder) Right upper quadrant pain Thyroid disease Wrist fracture, right Surgical History Surgical History History of hysterectomy 1992 History of surgery on upper extremity RT arm History of tonsillectomy Family History Family History Father Acute myocardial infarction Mother Depression Cerebrovascular accident Sibling Thyroid disorder Son Depression Cancer Social History Social History Years smoked: 4 Smoking status: Light tobacco smoker Tobacco type: cigarettes Second hand tobacco smoke exposure: Yes Additional smoking assessment comments: 1/2 pack a day Alcohol intake: former Alcohol use details: beer and Fireball Substance use: current Substance use type: marijuana Other substance usage details: MEDICAL PRESCRIPTION FOR GUMMIES AND SMOKE Additional living arrangements comments: spouse Additional occupation/education comments: disability Gender identity (if verbalized by the patient): Female Sexual Orientation (if Verbalized by the Patient): Straight or Heterosexual Spiritual care concerns: No Exam Narrative: GENERAL: Well-appearing, well-nourished, and in no acute distress. HEAD: Normocephalic, atraumatic. EYES: PERRLA and EOMI. NECK: Supple. CHEST: Clear to auscultation.
== END 2021-12-28 21:01 | disposition home or self-care (01) ==
PROVIDERS: Emergency Medicine; Emergency Provider Family Medicine; PCP Family Medicine Adolescent Medicine
DX: I82.431 Acute embolism and thrombosis of right popliteal vein (principal); E03.9 Hypothyroidism, unspecified; K21.9 Gastro-esophageal reflux disease without esophagitis; M19.90 Unspecified osteoarthritis, unspecified site; M81.0 Age-related osteoporosis without current pathological fracture; F43.10 Post-traumatic stress disorder, unspecified; F31.9 Bipolar disorder, unspecified; Z85.41 Personal history of malignant neoplasm of cervix uteri; R00.0 Tachycardia, unspecified; R94.31 Abnormal electrocardiogram [ECG] [EKG]; Z79.01 Long term (current) use of anticoagulants
CPT/HCPCS: 36415; 80053; 83690; 83880; 84484; 85025; 85610; 85730; 93005; 99284

== ENCOUNTER 2022-01-18 13:56 | Emergency (ER) | payer MEDICARE, SELFPAY ==
--- NOTE | ~2022-01-18 | XR_ITS ---
EXAMINATION: XR wrist RT min 3V DATE: 01/18/2022 14:12 INDICATION: Right wrist pain. Fall. TECHNIQUE: 4 views of right wrist were obtained. COMPARISON: Right wrist radiograph 03/22/2021 FINDINGS: There is an old healed fracture of distal radius. The distal articular surface demonstrates 24 degrees dorsal tilt. There is an old avulsion fracture of ulnar styloid with nonunion. There is m ild osteoarthritis of first carpometacarpal joint. There are surgical clips in the forearm. IMPRESSION: 1. Mild osteoarthritis of first carpometacarpal joint. 2. Old healed fracture deformity of distal radius with malunion. Reviewed, dictated and finalized at location A. HOUSE ASSOCIATE
--- NOTE | ~2022-01-18 | XR_ITS ---
EXAMINATION: XR hand RT min 3V DATE: 01/18/2022 14:12 INDICATION: Right hand pain. Fall. TECHNIQUE: 3 views of right hand were obtained. COMPARISON: Right wrist radiographs 03/22/2021 FINDINGS: There is an old healed fracture of distal radius with malunion. There is dorsal tilt of the distal articular surface. There is an old avulsion fracture of ulnar styloid with nonunion. There is mild osteoarthritis of first carpometacarpal joint, second metacarpophalangeal joint, and some of th e interphalangeal joints. There are surgical clips in the distal forearm. IMPRESSION: 1. Mild polyarticular osteoarthritis. 2. Old healed fracture of distal radius with malunion. Reviewed, dictated and finalized at location A. [employer] AUTOMOTIVE TECHNICIAN
[2022-01-18 14:12] VITALS: BP 92/62; PULSE 118; RESP 18; TEMP 36.1; O2SAT 100
--- NOTE | 2022-01-18 14:25 | ED.UPPEXIN ---
HPI - Extremity Injury (Upper) General Chief Complaint: Extremity Injury, Upper Stated Complaint: Right wrist pain Time Seen by Provider: 01/18/22 14:25 Source: patient Mode of arrival: ambulatory Limitations: no limitations History of Present Illness HPI narrative: 56-year-old female presents with right wrist pain. Was walking alongside of car on edge of driveway and tripped on curb causing her to fall. Put R wrist out to catch herself. Injury occurred 3 days ago. hx of R wrist fx. arrived wearing wrist splint from home. distal NV intact, ROM decreased. All systems reviewed and negative except as noted above. Related Data Home Medications Medication Instructions Recorded Confirmed gabapentin 900 mg PO TID 04/20/20 12/27/21 nortriptyline 75 mg PO HS 04/20/20 12/27/21 omeprazole 20 mg tablet,delayed 20 mg PO DAILY 04/27/21 12/27/21 release levothyroxine 125 mcg PO DAILY 05/05/21 12/27/21 rivaroxaban [Xarelto] 30 mg PO DAILY 12/28/21 Allergies Allergy/AdvReac Type Severity Reaction Status Date / Time Penicillins Allergy Mild Hives Verified 12/27/21 15:11 Review of Systems Review of Systems: CONSTITUTIONAL: Denies fever, chills, or sweats. EYES: Denies visual changes, redness, or discharge. ENT: Denies rhinorrhea, congestion, sore throat, or otalgia. CARDIOVASCULAR: Denies chest pain, palpitations, or edema. RESPIRATORY: Denies cough or dyspnea. GASTROINTESTINAL: Denies abdominal pain, nausea, vomiting, or diarrhea. GENITOURINARY: Denies dysuria or hematuria. SKIN: Denies rash or itching. MUSCULOSKELETAL: Denies back pain, joint pain, or myalgia. Right wrist pain and swelling NEUROLOGIC: Denies headache, numbness, or weakness. PSYCHIATRIC: Denies anxiety or depression. All other systems reviewed are negative, except as documented in HPI. 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 Osteoporosis PTSD (post-traumatic stress disorder) Right upper quadrant pain Thyroid disease Wrist fracture, right Surgical History Surgical History History of hysterectomy 1992 History of surgery on upper extremity RT arm History of tonsillectomy Family History Family History Father Acute myocardial infarction Mother Depression Cerebrovascular accident Sibling Thyroid disorder Son Depression Cancer Social History Social History Years smoked: 4 Smoking status: Light tobacco smoker Tobacco type: cigarettes Second hand tobacco smoke exposure: Yes Additional smoking assessment comments: 1/2 pack a day Alcohol intake: former Alcohol use details: beer and Fireball Substance use: current Substance use type: marijuana Other substance usage details: MEDICAL PRESCRIPTION FOR GUMMIES AND SMOKE Additional living arrangements comments: spouse Additional occupation/education comments: disability Gender identity (if verbalized by the patient): Female Sexual Orientation (if Verbalized by the Patient): Straight or Heterosexual Spiritual care concerns: No Comments At time of signature, agree with nursing past medical, surgical, social and family history. There is no relevant family history pertinent to the presenting complaint. Exam Narrative: GENERAL: This is a well-nourished, well-developed patient, in no apparent distress. HEAD: normocephalic, atraumatic. EYES:
== END 2022-01-18 14:38 | disposition home or self-care (01) ==
PROVIDERS: Emergency Provider Nurse Practitioner Family; PCP Family Medicine Adolescent Medicine
DX: S63.501A Unspecified sprain of right wrist, initial encounter (principal); W01.0XXA Fall on same level from slipping, tripping and stumbling without subsequent striking against object, initial encounter; F17.210 Nicotine dependence, cigarettes, uncomplicated; K21.9 Gastro-esophageal reflux disease without esophagitis; E03.9 Hypothyroidism, unspecified; M81.0 Age-related osteoporosis without current pathological fracture; M19.90 Unspecified osteoarthritis, unspecified site; Z85.41 Personal history of malignant neoplasm of cervix uteri
CPT/HCPCS: 73110; 73130; 99213; G0463

== ENCOUNTER 2022-01-27 13:41 | Emergency (ER) | payer MEDICARE, SELFPAY ==
--- NOTE | ~2022-01-27 | XR_ITS ---
EXAMINATION: XR shoulder LT min 2V EXAM DATE: 01/27/2022 14:13 INDICATION: Fall From Ladder Pain To Top Of Shoulder . TECHNIQUE: The following left shoulder projections obtained: frontal projection with internal rotatio n, frontal projection with external rotation, Grashey, and scapular Y view (4+ views). Correlation is made to CT chest scan from 12/27/2021. FINDINGS: Acute closed posttraumatic comminuted fracture of the left clavicle shaft distally, probabl y some impaction of the shaft into the distal aspect of the left clavicle. The humeral head and gleno id are unremarkable. Left 7th, 8th rib fractures, appear chronic on CT scan last month but can't excl ude acute refracture. IMPRESSION: 1. Acute comminuted left distal clavicular fracture. 2. Chronic or acute on chronic 7th, 8th rib fractures. Reviewed, dictated and finalized at location A. CONTROLLER
[2022-01-27 13:43] VITALS: BP 133/90; PULSE 118; RESP 18; TEMP 35.8; O2SAT 100
--- NOTE | 2022-01-27 14:48 | ED.UPPEXIN ---
HPI - Extremity Injury (Upper) General Chief Complaint: Extremity Injury, Upper Stated Complaint: shoulder injury, fall Time Seen by Provider: 01/27/22 14:36 History of Present Illness HPI narrative: 56-year-old female presents the emergency room status post a fall off of ladder, that occurred this morning. Patient states that she struck her left clavicle on the dresser. Admits to recent history of multiple rib fractures. Patient is unable to move her left shoulder due to the pain. Related Data Home Medications Medication Instructions Recorded Confirmed nortriptyline 75 mg PO HS 04/20/20 01/23/22 omeprazole 20 mg tablet,delayed 20 mg PO DAILY 04/27/21 01/23/22 release Allergies Allergy/AdvReac Type Severity Reaction Status Date / Time Penicillins Allergy Mild Hives Verified 01/23/22 13:44 Review of Systems Review of Systems: CONSTITUTIONAL: Denies fever, chills, or sweats. EYES: Denies visual changes, redness, or discharge. ENT: Denies rhinorrhea, congestion, sore throat, or otalgia. CARDIOVASCULAR: Denies chest pain, palpitations, or edema. RESPIRATORY: Denies cough or dyspnea. GASTROINTESTINAL: Denies abdominal pain, nausea, vomiting, or diarrhea. GENITOURINARY: Denies dysuria or hematuria. SKIN: Denies rash or itching. MUSCULOSKELETAL: Per HPI: Left clavicle/shoulder pain NEUROLOGIC: Denies headache, numbness, dizziness, or weakness. PSYCHIATRIC: Denies anxiety or depression. 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 Osteoporosis PTSD (post-traumatic stress disorder) Right upper quadrant pain Thyroid disease Wrist fracture, right Surgical History Surgical History History of hysterectomy 1992 History of surgery on upper extremity RT arm History of tonsillectomy Family History Family History Father Acute myocardial infarction Mother Depression Cerebrovascular accident Sibling Thyroid disorder Son Depression Cancer Social History Social History Years smoked: 4 Smoking status: Light tobacco smoker Tobacco type: cigarettes Second hand tobacco smoke exposure: Yes Additional smoking assessment comments: 1/2 pack a day Alcohol intake: former Alcohol use details: beer and Fireball Substance use: current Substance use type: marijuana Other substance usage details: MEDICAL PRESCRIPTION FOR GUMMIES AND SMOKE Additional living arrangements comments: spouse Additional occupation/education comments: disability Gender identity (if verbalized by the patient): Female Sexual Orientation (if Verbalized by the Patient): Straight or Heterosexual Spiritual care concerns: No Exam Narrative: GENERAL: Well-appearing, well-nourished, and in no acute distress. HEAD: Normocephalic, atraumatic. EYES: PERRLA and EOMI. ENT: Nares clear, no rhinorrhea or epistaxis. Mucous membranes moist. NECK: Supple. No adenopathy or masses. No carotid bruits or JVD CHEST: Clear to auscultation. No respiratory distress. No wheezes rales or rhonchi HEART: Regular rate and rhythm. No murmur heard. Normal peripheral pulses. ABDOMEN: Soft, nontender, nondistended, normal active bowel sounds. EXTREMITIES: Left shoulder: Obvious bony abnormality of the distal end of the clavicle; limited range of motion in all smyth of movement; neurovascular distally intact
[2022-01-27] MEDS: KETOROLAC (*BKC) 60 MG/2 ML VIAL IM (16:25)
[2022-01-27 16:29] VITALS: BP 145/85; PULSE 102; RESP 18; O2SAT 98
== END 2022-01-27 16:29 | disposition home or self-care (01) ==
PROVIDERS: Emergency Provider Nurse Practitioner Family; PCP Family Medicine Adolescent Medicine
DX: S42.032A Displaced fracture of lateral end of left clavicle, initial encounter for closed fracture (principal); S22.42XK Multiple fractures of ribs, left side, subsequent encounter for fracture with nonunion; K21.9 Gastro-esophageal reflux disease without esophagitis; E03.9 Hypothyroidism, unspecified; M81.0 Age-related osteoporosis without current pathological fracture; M19.90 Unspecified osteoarthritis, unspecified site; F17.210 Nicotine dependence, cigarettes, uncomplicated; F31.9 Bipolar disorder, unspecified; F43.10 Post-traumatic stress disorder, unspecified; Z85.41 Personal history of malignant neoplasm of cervix uteri; Z79.01 Long term (current) use of anticoagulants; W11.XXXA Fall on and from ladder, initial encounter; X58.XXXD Exposure to other specified factors, subsequent encounter
CPT/HCPCS: 73030; 96372; 99284; A4565; J1885

== ENCOUNTER 2022-02-02 12:40 | Outpatient (CLI) | payer MEDICARE, SELFPAY ==
[2022-02-02 14:22] LABS: Vitamin D 25 Hydroxy 25.6 ng/mL
== END 2022-02-02 12:41 | disposition home or self-care (01) ==
LOC: ANHLAB 12:45
PROVIDERS: PCP Family Medicine Adolescent Medicine; Visit Provider Physician Assistant Surgical
DX: E55.9 Vitamin D deficiency, unspecified (principal)
CPT/HCPCS: 36415; 82306

== ENCOUNTER 2022-04-03 10:38 | Outpatient (CLI) | payer MEDICARE, SELFPAY ==
--- NOTE | ~2022-04-03 | US_ITS ---
EXAMINATION:US venous doppler LE RT INDICATION:Acute embolism. Popliteal thrombosis. TECHNIQUE: Multiple grayscale, color flow and Doppler images of the right lower extremity deep venous systems were obtained and reviewed. COMPARISON:Ultrasound dated 12/27/2021 FINDINGS: The common femoral, superficial femoral and popliteal veins demonstrate normal respiratory variation, augmentation and compressibility. Color flow is also seen within the posterior tibial, pe roneal, greater saphenous and profunda veins. Interval resolution of right popliteal and posterior ti bial deep venous thrombosis. IMPRESSION: 1: No lower extremity deep venous thrombosis. Reviewed, dictated and finalized at location A.
== END 2022-04-03 10:39 | disposition home or self-care (01) ==
PROVIDERS: PCP Family Medicine Adolescent Medicine; Visit Provider Family Medicine Adolescent Medicine
DX: I82.431 Acute embolism and thrombosis of right popliteal vein (principal)
CPT/HCPCS: 93971

== ENCOUNTER 2022-07-18 11:16 | Emergency (ER) | payer MEDICARE, SELFPAY ==
--- NOTE | ~2022-07-18 | US_ITS ---
US venous doppler [facility] DATE: 07/18/2022 16:53 INDICATION: Right lower leg swelling and pain for 4 days. Left groin pain. History of deep venous thr ombosis. TECHNIQUE: Real-time and color flow imaging and Doppler analysis of both lower legs COMPARISON: 04/03/2022 views duplex examination of right lower extremity Minimal venous duplex examination of right lower extremity FINDINGS: Right lower extremity: The greater saphenous vein is patent. There is spontaneous and phasic flow of the right common femora l, femoral, popliteal and peroneal veins. One of the distal right posterior tibial veins only partial ly compresses. Left lower extremity: The greater saphenous vein is patent. There is spontaneous and phasic flow and normal augmentation an d color flow signal and normal compression of the deep veins of the left lower extremity. IMPRESSION: Partial deep venous thrombosis of a right distal posterior tibial vein Reviewed, dictated and finalized at Location A. Reviewed, dictated and finalized at location B. IMPRESSION: Partial deep venous thrombosis of a right distal posterior tibial v ein
[2022-07-18 12:13] VITALS: BP 130/85; PULSE 115; RESP 20; TEMP 36.3; O2SAT 99
--- NOTE | 2022-07-18 16:10 | ED.LOWEXIN ---
HPI - Extremity Injury (Lower) General Chief Complaint: Extremity Injury, Lower Stated Complaint: Right leg swelling (PMH of DVT) Time Seen by Provider: 07/18/22 15:40 History of Present Illness HPI Narrative: 56-year-old female presents to the emergency room for evaluation of right lower extremity swelling. Patient states the swelling has been present for 1 week, progressively got worse today. Patient has a positive history of a DVT in the same leg. Recently discontinued taking Xarelto. Leg pain is worse with ambulation. Patient also endorses a recent exposure to poison penny. Denies any injury or trauma. Denies any open wounds on the leg. Related Data Home Medications Medication Instructions Recorded Confirmed oxycodone 5 mg tablet 5 mg PO Q4-6H PRN 03/20/22 04/21/22 Allergies Allergy/AdvReac Type Severity Reaction Status Date / Time Penicillins Allergy Mild Hives Verified 07/18/22 15:45 Review of Systems Review of Systems: CONSTITUTIONAL: Denies fever, chills, or sweats. EYES: Denies visual changes, redness, or discharge. ENT: Denies rhinorrhea, congestion, sore throat, or otalgia. CARDIOVASCULAR: Denies chest pain, palpitations, or edema. RESPIRATORY: Denies cough or dyspnea. GASTROINTESTINAL: Denies abdominal pain, nausea, vomiting, or diarrhea. GENITOURINARY: Denies dysuria or hematuria. SKIN: Denies rash or itching. MUSCULOSKELETAL: Swelling to right lower leg NEUROLOGIC: Denies headache, numbness, dizziness, or weakness. PSYCHIATRIC: Denies anxiety or depression. 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 Osteoporosis PTSD (post-traumatic stress disorder) Right upper quadrant pain Thyroid disease Wrist fracture, right Surgical History Surgical History History of hysterectomy 1992 History of surgery on upper extremity RT arm History of tonsillectomy Family History Family History Father Acute myocardial infarction Mother Depression Cerebrovascular accident Sibling Thyroid disorder Son Depression Cancer Social History Social History Years smoked: 4 Smoking status: Light tobacco smoker Tobacco type: cigarettes Second hand tobacco smoke exposure: Yes Additional smoking assessment comments: 1/2 pack a day Alcohol intake: former Alcohol use details: beer and Fireball Substance use: current Substance use type: marijuana Other substance usage details: MEDICAL PRESCRIPTION FOR GUMMIES AND SMOKE Additional living arrangements comments: spouse Additional occupation/education comments: disability Gender identity (if verbalized by the patient): Female Sexual Orientation (if Verbalized by the Patient): Straight or Heterosexual Spiritual care concerns: No Exam Narrative: GENERAL: Well-appearing, well-nourished, no physical limitations, and in no acute distress. HEAD: Normocephalic, atraumatic. EYES: Conjunctivae normal, PERRLA and EOMI. CHEST: Clear to auscultation. No respiratory distress. No wheezes rales or rhonchi. No tenderness. HEART: Regular rate and rhythm. No murmur heard. Normal peripheral pulses. EXTREMITIES: Right lower extremity: Diffuse soft tissue swelling to the foot and ankle. Positive Homans' sign. Tenderness to the calf. SKIN: Warm, dry, no rash. No noted wounds NEURO: No focal deficits. Alert and oriented x3.
[2022-07-18 18:01] VITALS: BP 128/81; PULSE 101; RESP 18; O2SAT 99
== END 2022-07-18 18:02 | disposition home or self-care (01) ==
PROVIDERS: Emergency Provider Nurse Practitioner Family; PCP Family Medicine Adolescent Medicine
DX: I82.431 Acute embolism and thrombosis of right popliteal vein (principal); M19.90 Unspecified osteoarthritis, unspecified site; F31.9 Bipolar disorder, unspecified; K21.9 Gastro-esophageal reflux disease without esophagitis; K76.0 Fatty (change of) liver, not elsewhere classified; E03.9 Hypothyroidism, unspecified
CPT/HCPCS: 93970; 99284

== ENCOUNTER 2022-08-08 16:29 | Outpatient (CLI) | payer MEDICARE, SELFPAY ==
--- NOTE | ~2022-08-08 | XR_ITS ---
XR hip LT min 2V 08/08/2022 17:00 Indication: Left hip pain Procedure: 2 views left hip Comparison: No prior studies for comparison. Findings: There is mild osteoarthritis of the left hip. No fracture or traumatic malalignment. No sig nificant soft tissue abnormality. No foreign body. Impression: 1: Mild osteoarthritis of the left hip Reviewed, dictated and finalized at location A. Impression: 1: Mild osteoarthritis of the left hip
--- NOTE | ~2022-08-08 | US_ITS ---
US venous doppler [facility] DATE: 08/08/2022 17:23 INDICATION: Acute embolism and thrombosis TECHNIQUE: Real-time imaging and color flow imaging and Doppler analysis of the veins of the lower ex tremities COMPARISON: 07/18/2022 bilateral lower extremity venous duplex examination FINDINGS: Right lower extremity: There is absence of flow or compression of the right peroneal veins consistent with deep venous thrombosis.. There is thrombus identified within the right posterior tibial vein. There is normal augmentation and color flow signal and normal augmentation and normal compression of the right common femoral, femoral and popliteal veins. The right greater saphenous vein is patent. Left lower extremity: The left greater saphenous vein is patent. There is spontaneous and phasic flow and normal augmentation, color flow signal and compression of the deep veins of the left leg. IMPRESSION: Deep venous thrombosis involving right posterior tibial and peroneal veins Reviewed, dictated and finalized at Location A. Reviewed, dictated and finalized at location B. IMPRESSION: Deep venous thrombosis involving right posterior tibial and peronea l veins
== END 2022-08-08 16:30 | disposition home or self-care (01) ==
PROVIDERS: PCP Family Medicine Adolescent Medicine; Visit Provider Physician Assistant
DX: I82.401 Acute embolism and thrombosis of unspecified deep veins of right lower extremity (principal); M16.12 Unilateral primary osteoarthritis, left hip
CPT/HCPCS: 73502; 93970

== ENCOUNTER 2022-09-22 10:07 | Outpatient (CLI) | payer MEDICARE, SELFPAY ==
--- NOTE | ~2022-09-22 | US_ITS ---
EXAMINATION: US venous doppler [facility] DATE: 09/22/2022 10:55 INDICATION: Left lower limb pain. Prior deep venous thrombosis in the right lower limb. TECHNIQUE: Grayscale ultrasound images without and with compression and Doppler ultrasound images of the left lower extremity veins were obtained. COMPARISON: 08/08/2022 FINDINGS: The visualized portions of left common femoral vein, profunda (deep) femoral vein, femoral vein, popl iteal vein, peroneal veins, posterior tibial veins, gastrocnemius vein and greater saphenous vein out flow are patent. IMPRESSION: 1. No deep venous thrombosis in the left lower limb. Reviewed, dictated and finalized at location B.
== END 2022-09-22 10:08 | disposition home or self-care (01) ==
PROVIDERS: PCP Family Medicine Adolescent Medicine; Visit Provider Physician Assistant
DX: M79.89 Other specified soft tissue disorders (principal); M79.605 Pain in left leg; M25.552 Pain in left hip
CPT/HCPCS: 93971

== ENCOUNTER → 2023-02-15 10:23 | Outpatient (CLI) | payer MEDICARE, SELFPAY ==
--- NOTE | ~2023-02-15 | MR_ITS ---
MRI of the left hip Clinical history: Pain Technique: Coronal T1-weighted, T2-weighted, and proton-density fat-sat images, and axial T1-weighted and proton-density fat-sat images were acquired through the pelvis. Coronal T2-weighted images and c oronal, axial, and sagittal proton-density fat-sat images were acquired through the left hip. Follow ing intravenous administration of 14 cc MultiHance gadolinium, T1-weighted fat-sat imaging was perfor med in the axial and coronal planes. Findings: There is geographic signal abnormality at the superior aspect of the bilateral femoral head s, consistent with avascular necrosis. No subchondral fracture or articular surface collapse evident. Bone marrow signals in the remaining visualized pelvic bones are otherwise unremarkable. Small to mo derate left hip joint effusion present. Small right hip joint effusion present. There is probable deg enerative attenuation of the anterosuperior left acetabular labrum. There is mild underlying bilateral hip joint osteoarthritis with small femoral head neck junction ost eophyte present bilaterally. Visualized musculature about the pelvis is unremarkable. No muscle atrophy or edema evident. Visualiz ed tendons are intact. No other soft tissue mass or fluid collection seen. IMPRESSION: Avascular necrosis of the bilateral femoral heads. No subchondral fracture articular surface collapse evident. Mild underlying bilateral hip joint osteoarthritic change. Small to moderate left hip joint effusion and small right hip joint effusion. These are nonspecific. Reviewed, dictated and finalized at [facility]. IMPRESSION: Avascular necrosis of the bilateral femoral heads. No subchondral fracture yanna cular surface collapse evident. Mild underlying bilateral hip joint osteoarthritic change. Small to moderate left hip joint effusion and small right hip joint effusion. T hese are nonspecific.
== END ==
PROVIDERS: PCP Family Medicine Adolescent Medicine; Visit Provider Nurse Practitioner
DX: M25.552 Pain in left hip (principal); M87.9 Osteonecrosis, unspecified; M16.0 Bilateral primary osteoarthritis of hip; M25.452 Effusion, left hip; M25.451 Effusion, right hip
CPT/HCPCS: 73723; A9577

== ENCOUNTER → 2023-03-27 08:02 | Outpatient (CLI) | payer MEDICARE, SELFPAY ==
--- NOTE | ~2023-03-27 | XR_ITS ---
Right foot Technique: AP and lateral views were obtained. Clinical History: Pain COMPARISON: 09/02/2021 Findings: There is an oblique intra-articular fracture at the base of the second proximal phalanx, mi nimally displaced. There is mild hallux valgus. There is mild flattening of the second and third meta tarsal heads, unchanged. Joint spaces are preserved without erosive or degenerative change. Soft tiss ues are unremarkable. Impression: Oblique, minimally displaced intra-articular fracture at the base of the second proximal phalanx medi ally. Chronic flattening of the second and third metatarsal heads, unchanged. This is compatible with chron ic Fre[place] infractions. Mild hallux valgus. Reviewed, dictated and finalized at location [facility]. Impression: Oblique, minimally displaced intra-articular fracture at the base of the second proximal phalanx medially. Chronic flattening of the second and third metatarsal heads, unchanged. This is compatible with chronic Fre[place]erg infractions. Mild hallux valgus.
== END ==
PROVIDERS: PCP Family Medicine Adolescent Medicine; Visit Provider Family Medicine Adolescent Medicine
DX: M79.671 Pain in right foot (principal); S92.811A Other fracture of right foot, initial encounter for closed fracture; M20.11 Hallux valgus (acquired), right foot
CPT/HCPCS: 73620

== ENCOUNTER 2023-05-12 14:02 | Emergency (ER) | payer MEDICARE, SELFPAY ==
--- NOTE | ~2023-05-12 | XR_ITS ---
2 views of the left clavicle CLINICAL HISTORY: Injury COMPARISON: 01/27/2022 FINDINGS: There is apparent chronic fracture deformity of the distal left clavicle, with prominent he terotopic ossification and/or chronic nonunited fracture fragments. Radiographic, these lesions all a ppear well-corticated and mature. No definite acute fracture seen. Stable alignment at the AC joint. Glenohumeral joint is intact. Soft tissues are otherwise unremarkable. 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 No definite acute fracture or dislocation seen. Reviewed, dictated and finalized at location .
--- NOTE | ~2023-05-12 | XR_ITS ---
AP and lateral views of the left hip Clinical history: Pain Findings: No acute fracture or dislocation is seen. Left hip arthroplasty is in place. Left SI joint unremarkable. Soft tissues are unremarkable. Impression: No acute abnormality is seen. Left hip arthroplasty in place. Reviewed, dictated and finalized at location . Impression: No acute abnormality is seen. Left hip arthroplasty in place.
[2023-05-12 14:20] VITALS: BP 103/63; PULSE 102; RESP 20; TEMP 36.4; O2SAT 99
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
== END 2023-05-12 15:54 | disposition home or self-care (01) ==
PROVIDERS: Emergency Provider Nurse Practitioner; PCP Family Medicine Adolescent Medicine
DX: S46.912A Strain of unspecified muscle, fascia and tendon at shoulder and upper arm level, left arm, initial encounter (principal); S76.012A Strain of muscle, fascia and tendon of left hip, initial encounter; Y04.0XXA Assault by unarmed brawl or fight, initial encounter; M19.90 Unspecified osteoarthritis, unspecified site; K21.9 Gastro-esophageal reflux disease without esophagitis; E03.9 Hypothyroidism, unspecified; M81.0 Age-related osteoporosis without current pathological fracture; Z86.2 Personal history of diseases of the blood and blood-forming organs and certain disorders involving the immune mechanism; Z85.41 Personal history of malignant neoplasm of cervix uteri; Z96.642 Presence of left artificial hip joint; Z79.01 Long term (current) use of anticoagulants
CPT/HCPCS: 73000; 73502; 99214; G0463